=== PATIENT | female | born 1960 | race Caucasian/White ===

== ENCOUNTER → 2019-12-12 | Outpatient (CLI) | payer OTHER | LOC: M.LAB 09:19 | PROVIDERS: ATTEND Orthopaedic Surgery | DX: Z01.812 Encounter for preprocedural laboratory examination (principal) ==

== ENCOUNTER → 2020-03-02 | Outpatient (CLI) | payer OTHER | LOC: M.LAB 15:01 | PROVIDERS: ATTEND Orthopaedic Surgery | DX: Z01.812 Encounter for preprocedural laboratory examination (principal); Z11.59 Encounter for screening for other viral diseases ==

== ENCOUNTER → 2020-11-05 | Outpatient (CLI) | payer OTHER | LOC: M.MRI 10:46 | PROVIDERS: ATTEND Orthopaedic Surgery | DX: M17.12 Unilateral primary osteoarthritis, left knee (principal); M25.462 Effusion, left knee; M25.762 Osteophyte, left knee ==

== ENCOUNTER 2020-12-18 10:46 | Inpatient (IN) | payer OTHER ==
[~2020-12-18] VITALS: Ht 165.1 cm; Wt 93.0 kg
[2020-12-20] MEDS ORDERED: VITAMIN D3250 MCG PO (09:15)
[2020-12-20] MEDS ORDERED: LEVO-T25 MCG PO (09:16)
[2020-12-20] MEDS ORDERED: LIPITOR40 MG PO (09:16)
[2020-12-20] MEDS ORDERED: METOPROLOL SUCC50 MG PO (09:17)
[2020-12-20] MEDS ORDERED: EFFEXOR XR150 MG PO (09:18)
[2020-12-20] MEDS ORDERED: STOOL SOFTENER100 MG PO (09:20)
[2020-12-20] MEDS ORDERED: ZETIA10 MG PO (09:20)
[2020-12-20] MEDS ORDERED: MELATONIN10 M3 PO (09:21)
[2020-12-20] MEDS ORDERED: DAILY FIBER0.52 GM PO (09:21)
[2020-12-20] MEDS ORDERED: SUPER THERAVIT1 EACH PO (09:23)
[2020-12-20] MEDS ORDERED: ASA81BEC PO (09:23)
[2020-12-20] MEDS ORDERED: ALLERGY RELIEF4 MG PO (09:24)
[2020-12-25 07:56] VITALS: BP 134/85
[2020-12-25] MEDS ORDERED: CLEOCIN HCL300 MG PO (08:13)
[2020-12-25 12:05] VITALS: BP 129/72
[2020-12-25 16:13] VITALS: BP 127/73
[2020-12-25 22:00] VITALS: BP 131/80
[2020-12-26 00:26] VITALS: BP 173/93
[2020-12-26 04:51] LABS: ABSOLUTE LYMPHOCYTES 1.7 thou/uL (0.8-5.3); ABSOLUTE NEUTROPHILS 9.2 thou/uL (1.6-8.1); BASOPHILS 0.3 %; EOSINOPHILS 0.1 %; HEMATOCRIT 33.7 % (37.0-47.0); MCHC 32.7 g/dL (28.0-37.0); MCV 88.7 fL (80.0-100.0); MONOCYTES 8.5 %; MPV 8.6 fl. (7.2-11.1); NUCLEATED RBCS 0 /100WBC; PLATELET COUNT* 274 thou/uL (150-400); POLYS 77.1 %; RDW-CV 13.8 % (10.5-14.5); WBC 11.9 thou/uL (4.0-11.0)
[2020-12-26 04:55] VITALS: BP 142/84
[2020-12-26 05:30] LABS: ALBUMIN 3.2 g/dL (3.4-5.0); CALCIUM 8.5 mg/dL (8.5-10.1); CREATININE 1.1 mg/dL (0.6-1.3); TOTAL BILIRUBIN 0.2 mg/dL (<0.1-1.0); TOTAL PROTEIN 6.7 g/dL (6.4-8.2)
[2020-12-26] MEDS ORDERED: OXYCODONE HCL 55 MG PO (11:24)
[2020-12-26] MEDS ORDERED: PERCOCET PO (13:25)
[2020-12-26 13:50] VITALS: BP 142/84
[2020-12-26 18:20] VITALS: BP 142/84
--- NOTE | 2020-12-27 10:24 | OP ---
[facility] [address] [place] [address] OPERATIVE REPORT Name: BEN MATA Room: [address] M.R.#: [id number] Admission: 12/25/20 Attend Phys: Darryn Martinez Discharge: 12/26/20 Date of : 62 Report #: [id number] THIS REPORT FOR: cc: Yoel Goddard MD, Matthew D MD Greiner, Robert F. II DO ~ DOC #: [id number] Jay Galeana II, DO DATE OF SURGERY: 12/25/2020 PREOPERATIVE DIAGNOSIS: Left knee osteoarthritis. POSTOPERATIVE DIAGNOSIS: Left knee osteoarthritis. PROCEDURE: Left total knee arthroplasty. SURGEON: Jay Galeana II, DO GARAGEMAN: None. ANESTHESIA: General endotracheal. ESTIMATED BLOOD LOSS: 50 mL. ANTIBIOTICS: Ancef preoperatively. DRAINS: Median Hemovac. COMPLICATIONS: None. CONDITION: The patient is stable to recovery room. IMPLANTS: Not recorded in progress note. BRIEF HISTORY: The patient was seen in the preoperative area. Preoperative H and P was performed. Site was marked, questions were answered. Risks and benefits were discussed with the patient in detail about surgery. The patient wished to proceed assuming all risks. DESCRIPTION OF PROCEDURE: The patient was taken to the operative suite, placed supine on the operating table and appropriate anesthesia. A well-padded tourniquet was applied to the upper thigh, which was inflated to 300 mmHg after gravity exsanguination. The upper knee was sterilely prepped and draped. Surgery began by midline incision was carried down to subcutaneous tissues. A medial parapatellar arthrotomy was performed, carried down to bone. Patella was then everted and excess soft tissues were removed from around the femur. The [address] [address] OPERATIVE REPORT Name: ADOLFOBEN Room: [address]#: [id number] Admission: 12/25/20 Attend Phys: Darryn Martinez Discharge: 12/26/20 Date of : 62 Report #: [id number] femoral cutting block was then applied and checked with a drop rotation alignment, pinned in appropriate position, appropriate cuts were made. A 4-in-1 cutting block was then applied, checked for rotation alignment, pinned in appropriate position, appropriate cuts were made. The tibia was exposed. Excess meniscus was removed. Retractors were placed on the lateral ligaments. The tibial cutting block was then applied, pinned in appropriate position, checked with a drop for rotation alignment and slope and appropriate cut was made. This was checked for rotation alignment with the drop marvin and pinned in appropriate position with the baseplate. The femur was then applied and box cut was reamed. This was trialed with appropriate spacer, which showed excellent fit and fill and excellent stability of the knee through all range of motion. The patella was reamed in were appropriate fashion, sized appropriate size, 3 peg holes were drilled and it was then trialed. There was excellent flexion and extension and excellent tracking patellofemoral groove. These trials were removed. The tibia was punched in appropriate fashion. Bone ends were cleansed with Pulsavac irrigation and cement was mixed and applied to final implants. These were malleted in position and held the knee extended and compressed to allow the cement to cure. After cured, excess cement was removed with a [place] and osteotome. The wound was then copiously irrigated and a final spacer was then malleted in position. Tourniquet was deflated. Hemostasis was maintained with electrocautery. The pain cocktail was injected. A median Hemovac drain was applied. Capsule was closed with #2 FiberWire and #1 Vicryl in [id number] fashion. Skin was closed with 2-0 Vicryl and a running 3-0 Monocryl. Dermabond and sterile dressing were applied. Milo wrap and PolarCare were applied. The patient transported to recovery in stable condition. Counts were correct. Jay Galeana II, DO RFG/XIANG/SOT <ELECTRONICALLY SIGNED> By: Jay Galeana II, DO 12/27/20 1024 [id number] Galeana II, DO /nt
== END 2020-12-26 15:00 | disposition home or self-care (01) | DRG 470 ==
LOC: M.PRE 10:46 → M.TBA 12-25 07:09 → M.PRE 12-25 09:34 → M.TBA 12-25 10:41 → M.ORTHSURG 12-25 10:41 → EDSTATUS 12-25 17:17 → M.ORTHSURG 12-25 17:24
PROVIDERS: Orthopaedic Surgery; ADMIT Internal Medicine; ATTEND Internal Medicine
PROC: 0SRD0J9 Replacement of Left Knee Joint with Synthetic Substitute, Cemented, Open Approach (ICD-10-PCS; principal; 2020-12-25)
PROC: 3E0T3BZ Introduction of Anesthetic Agent into Peripheral Nerves and Plexi, Percutaneous Approach (ICD-10-PCS; 2020-12-25)
DX: M17.12 Unilateral primary osteoarthritis, left knee (principal); E03.9 Hypothyroidism, unspecified; I10 Essential (primary) hypertension; Z88.0 Allergy status to penicillin; Z88.7 Allergy status to serum and vaccine; Z79.899 Other long term (current) drug therapy; Z90.710 Acquired absence of both cervix and uterus

== ENCOUNTER → 2020-12-20 | Outpatient (CLI) | payer OTHER ==
[~2020-12-20] MED LIST: ALLERGY RELIEF4 MG PO; ASA81BEC PO; CLEOCIN HCL300 MG PO; DAILY FIBER0.52 GM PO; EFFEXOR XR150 MG PO; LEVO-T25 MCG PO; LIPITOR40 MG PO; MELATONIN10 M3 PO; METOPROLOL SUCC50 MG PO; OXYCODONE HCL 55 MG PO; PERCOCET PO; STOOL SOFTENER100 MG PO; SUPER THERAVIT1 EACH PO; VITAMIN D3250 MCG PO; ZETIA10 MG PO
[2020-12-20 10:05] LABS: ABSOLUTE BASOPHILS 0.1 thou/uL (0.0-0.2); ABSOLUTE EOSINOPHILS 0.3 thou/uL (0.0-0.7); ABSOLUTE LYMPHOCYTES 1.7 thou/uL (0.8-5.3); ABSOLUTE MONOCYTES 0.7 thou/uL (0.0-1.2); ABSOLUTE NEUTROPHILS 3.3 thou/uL (1.6-8.1); BASOPHILS 1.3 %; EOSINOPHILS 4.8 %; HEMATOCRIT 40.3 % (37.0-47.0); HEMOGLOBIN 13.3 gm/dL (12.0-15.0); LYMPHOCYTES 28.4 %; MCH 29.2 pg (26.0-34.0); MCHC 32.9 g/dL (28.0-37.0); MCV 88.6 fL (80.0-100.0); MONOCYTES 11.6 %; MPV 7.8 fl. (7.2-11.1); NUCLEATED RBCS 0 /100WBC; PLATELET COUNT* 302 thou/uL (150-400); POLYS 53.9 %; RBC 4.55 mil/uL (4.20-5.00); RDW-CV 13.7 % (10.5-14.5)
[2020-12-20 10:09] LABS: URINE BILIRUBIN NEGATIVE (Negative); URINE BLOOD NEGATIVE (Negative); URINE CLARITY CLEAR; URINE COLOR YELLOW; URINE GLUCOSE-RANDOM NEGATIVE (Negative); URINE KETONES NEGATIVE (Negative); URINE LEUKOCYTES-REFLEX NEGATIVE (Negative); URINE NITRITE-REFLEX NEGATIVE (Negative); URINE PROTEIN NEGATIVE (Negative); URINE SPECIFIC GRAVITY >= 1.030 (1.005-1.030); URINE UROBILINOGEN 0.2 E.U./dl (0.2-1.0)
[2020-12-20 10:18] LABS: ALBUMIN 3.9 g/dL (3.4-5.0); CALCIUM 9.3 mg/dL (8.5-10.1); POTASSIUM 4.2 mmol/L (3.5-5.1); TOTAL BILIRUBIN 0.3 mg/dL (<0.1-1.0); TOTAL PROTEIN 7.9 g/dL (6.4-8.2)
[2020-12-20 10:22] LABS: INR 0.9; PROTIME 9.8 Seconds (9.20-11.50)
--- NOTE | 2020-12-20 11:08 | EKG ---
[place] [address] ELECTROCARDIOGRAM REPORT Name: BEN MATA Room: [facility]#: [id number] Admission: 12/20/20 Attend Phys: Jay Galeana, Discharge: Date of : 62 Date of Service: 12/20/20 1017 Report #: [id number] THIS REPORT FOR: //name// [facility] Test Date: 2020-12-20 Test Time: 10:17:25 Pat Name: BEN MATA Department: Room: Gender: F Rn Clinical: : 1960 Requested By: Jay Galeana Order Number: [id number] Reading MD: Cornell Hernandez Measurements Intervals [place] Rate: 67 P: 32 MO: 172 QRS: 17 QRSD: 91 T: 79 QT: 399 QTc: 422 Interpretive Statements Sinus rhythm No previous ECG available for comparison Electronically Signed On 12-20-2020 11:07:59 CDT by Cornell Hernandez [email or web address] <ELECTRONICALLY SIGNED> By: Cornell Hernandez MD, [facility] 12/20/20 1107 D: 05/1016 16 Cornell Hernandez MD, FACC /EPI
== END ==
LOC: M.LAB 09:38
PROVIDERS: ATTEND Orthopaedic Surgery
DX: Z01.812 Encounter for preprocedural laboratory examination (principal); Z01.818 Encounter for other preprocedural examination; M17.12 Unilateral primary osteoarthritis, left knee